=== PATIENT | male | born 1975 | race Two or more races ===

== ENCOUNTER 2018-11-09 06:04 | Emergency (ER) | payer OTHER ==
[~2018-11-09] VITALS: Ht 157.5 cm; Wt 90.7 kg
[2018-11-09 06:07] VITALS: Ht 157.5 cm; Wt 90.7 kg
[2018-11-09 08:15] VITALS: BP 138/91
== END 2018-11-09 08:23 | disposition home or self-care (01) ==
LOC: ED 06:04
DX: J02.9 Acute pharyngitis, unspecified (principal)
CPT/HCPCS: J7512